=== PATIENT | female | born 1945 | race Caucasian/White ===

== ENCOUNTER 2019-12-12 00:30 | Outpatient (NON) | payer MEDICARE, SELFPAY ==
[2019-12-12 18:41] LABS: SARS-CoV-2 RNA PCR Negative
== END 2020-09-06 09:29 | disposition home or self-care (01) ==
PROVIDERS: Visit Provider Family Medicine
DX: R06.02 Shortness of breath (principal); Z20.828 Contact with and (suspected) exposure to other viral communicable diseases
CPT/HCPCS: 87635; C9803; U0003